=== PATIENT | male | born 1975 | race Caucasian/White ===

== ENCOUNTER 2023-05-13 00:34 | Day surgery (SDC) | payer OTHER, SELFPAY ==
[2023-05-03 12:50] VITALS: BMI 33.3
--- NOTE | 2023-05-12 15:19 | PM.HPGS ---
History of Present Illness History of Present Illness Consent: Risks, benefits, and alternatives have been discussed and questions answered. Patient agrees to proceed with procedure. Chief complaint: neoplasm screening Narrative: Lexx Montelongo is a 47 year old male who is referred for colon cancer screening. Review of Systems Review of Systems: All systems reviewed & are unremarkable except as noted in HPI and below PMFSH Past Medical History Medical History HTN (hypertension) Obesity Social History Social History Smoking status: Never smoker Alcohol intake: current Drinks per week: 10 Substance use: never Living arrangements: with family Spiritual care concerns: No Meds Home Medications and Allergies Home Medications Medication Instructions Recorded Confirmed Type amlodipine 5 mg tablet 5 mg PO DAILY 05/03/23 05/03/23 History lisinopril 10 mg tablet 10 mg PO DAILY 05/03/23 05/03/23 History rosuvastatin 10 mg tablet 10 mg PO DAILY 05/03/23 05/03/23 History Allergies Allergy/AdvReac Type Severity Reaction Status Date / Time No Known Allergies Allergy Verified 05/13/23 07:37 Exam Const: General: alert Orientation/consciousness: patient oriented x3 Resp: Auscultation: clear to auscultation bilaterally Cardio: Rhythm: regular rhythm GI: GI Palp: Yes Soft to palpation and No Tenderness to palpation present (GI) Neuro: General: patient oriented x3 Assessment and Plan Assessment and plan (1) Colon cancer screening: Code(s): Z12.11 - Encounter for screening for malignant neoplasm of colon Status: Acute Assessment and Plan: Colonoscopy with possible biopsy or polypectomy or cautery or injection of substances.
[2023-05-13 07:38] VITALS: BP 131/94; PULSE 98; RESP 20; TEMP 36.1; O2SAT 100
--- NOTE | 2023-05-13 07:42 | P.PNAN_ITS ---
Anes - Initial Pre Proc Eval Procedure: Operation Date: 05/13/23 08:30 Proposed Procedures p Screening Colonoscopy - Ashok Ingram MD Date/Time: 05/13/23 07:42 Surgeon: Ashok Ingram MD Pre Op Diagnosis: neoplasm screening Patient Data Age: 47 Gender: M Height: 1.75 m Weight: 101.9 kg Last Vital Signs Temp 36.1 C L 05/13/23 07:38 Pulse 98 05/13/23 07:38 Resp 20 05/13/23 07:38 BP 131/94 H 05/13/23 07:38 Pulse Ox 100 05/13/23 07:38 O2 Del Method Room Air 05/13/23 07:38 Allergies Allergy/AdvReac Type Severity Reaction Status Date / Time No Known Allergies Allergy Verified 05/13/23 07:37 Home Medications Medication Instructions Recorded Confirmed Type amlodipine 5 mg tablet 5 mg PO DAILY 05/03/23 05/03/23 History lisinopril 10 mg tablet 10 mg PO DAILY 05/03/23 05/03/23 History rosuvastatin 10 mg tablet 10 mg PO DAILY 05/03/23 05/03/23 History Patient hx anesthesia problems: none Family hx anesthesia problems: none Results Review: All pre-operative results and documents have been reviewed as part of the pre- operative evaluation. [facility] Past Medical History Medical History (Updated 05/13/23 @ 07:43 by José Miguel Dee MD) HTN (hypertension) Obesity Social History Social History Smoking status: Never smoker Alcohol intake: current Drinks per week: 10 Substance use: never Living arrangements: with family Spiritual care concerns: No Anes - Eval Final PreProcedure Day of Procedure 05/13/23 07:42 Patient weight: obese Heart: regular rate and rhythm Lungs: clear to auscultation Airway: Mallampati scale class III Neurological: alert and oriented Last oral intake: >/= 8 hours ASA classification: III Emergent: no Anesthetic plan: proceed Anesthesia type and monitoring: general GIVS and standard monitoring Results Review: All pre-operative results and documents have been reviewed as part of the pre- operative evaluation. Informed Consent: The patient's anesthetic plan and its attendant risks and benefits were discussed with the patient/family/POA. Questions were solicited and answers provided to the satisfaction of the patient/family/POA.
[2023-05-13] MEDS: LACTATED RINGERS 1,000 ML 150 ML IV CONT (07:48)
[2023-05-13 08:42] VITALS: BP 98/62; PULSE 62; RESP 19; O2SAT 96
[2023-05-13 08:52] VITALS: BP 113/75; PULSE 67; RESP 18; O2SAT 98
[2023-05-13 09:02] VITALS: BP 116/82; PULSE 60; RESP 19; O2SAT 98
== END 2023-05-13 09:15 | disposition home or self-care (01) ==
PROVIDERS: Visit Provider Internal Medicine Gastroenterology
PROC: 0DJD8ZZ Inspection of Lower Intestinal Tract, Via Natural or Artificial Opening Endoscopic (ICD-10-PCS; CPT 45378; principal; 2023-05-13 08:30)
DX: Z12.11 Encounter for screening for malignant neoplasm of colon (principal); I10 Essential (primary) hypertension; E66.9 Obesity, unspecified; Z68.33 Body mass index [BMI] 33.0-33.9, adult
CPT/HCPCS: 45378; J2704; J7120